=== PATIENT | female | born 1980 | race Hispanic/Latino ===

== ENCOUNTER 2017-12-14 19:19 | Emergency (ER) | payer OTHER ==
[~2017-12-14] VITALS: Ht 152.4 cm; Wt 55.0 kg
[2017-12-14 20:40] VITALS: BP 113/76
== END 2017-12-14 20:40 | disposition home or self-care (01) | DRG 561 ==
LOC: ED 19:19
DX: S62.102D Fracture of unspecified carpal bone, left wrist, subsequent encounter for fracture with routine healing (principal); S20.319D Abrasion of unspecified front wall of thorax, subsequent encounter; S40.2 Other superficial injuries of shoulder; V49.40XD Driver injured in collision with unspecified motor vehicles in traffic accident, subsequent encounter